=== PATIENT | male | born 1990 | race African-American/Black ===

== ENCOUNTER 2021-07-17 20:08 | Inpatient (IN) | payer MEDICAID ==
[~2021-07-17] VITALS: Ht 182.9 cm; Wt 83.9 kg
[2021-07-17] MEDS ORDERED: LEVETIRACETAM 500MG PREMIX 100 ML IV ONE (20:30)
[2021-07-17] MEDS ORDERED: LORAZEPAM 2MG/ML CPJ IV ONE (20:45)
[2021-07-17 21:15] LABS: HEMATOCRIT. 49.1 % (42.0-52.0); HEMOGLOBIN. 15.1 g/dL (14.0-18.0); MEAN CORPUSCULAR HEMOGLOBIN 31.3 pg (28.0-32.0); MEAN CORPUSCULAR VOLUME 101.4 fL (80.0-94.0); MEAN PLATELET VOLUME 9.6 fl (7.4-10.4); PLATELET 236 x1000/uL (130-400); RED BLOOD CELL COUNT 4.84 mill/uL (4.7-6.1); RED CELL DISTRIBUTION WIDTH 14.1 % (11.6-14.6)
[2021-07-17 21:24] LABS: CHLORIDE 105 mEq/L (98-107)
[2021-07-17 21:32] LABS: ETHANOL BLOOD < 10 mg/dL
[2021-07-17 22:08] LABS: PLATELET ESTIMATE NORMAL
[2021-07-18 01:37] LABS: CLARITY URINE CLEAR (CLEAR); COLOR URINE YELLOW (YELLOW); KETONES URINE TRACE (NEGATIVE); LEUKOCYTE ESTERASE URINE NEGATIVE (NEGATIVE); NITRITE URINE NEGATIVE (NEGATIVE); OCCULT BLOOD URINE 3+ (NEGATIVE); PROTEIN URINE 1+ (NEGATIVE); SPECIFIC GRAVITY URINE 1.014 (1.005-1.030); UROBILINOGEN URINE 0.2 E.U./dL (0.2-1.0)
[2021-07-18 02:01] LABS: *AMPHETAMINES SCREEN URINE NEGATIVE (NEGATIVE); *BARBITURATES SCREEN URINE NEGATIVE (NEGATIVE); *BENZODIAZEPINES SCREEN URINE NEGATIVE (NEGATIVE); *COCAINE SCREEN URINE NEGATIVE (NEGATIVE); CANNABINOID URINE SCREEN PRESUMTIVE POSITIVE (NEGATIVE); METHADONE URINE SCREEN NEGATIVE (NEGATIVE); OPIATES URINE SCREEN NEGATIVE (NEGATIVE); PHENCYCLIDINE URINE SCREEN NEGATIVE (NEGATIVE)
[2021-07-18 02:35] LABS: BG BASE EXCESS -8.3 mmol/L (-2.0-2.0); BG CARBOXYHEMOGLOBIN 0.5 % (0.5-1.5); BG DEOXYHEMOGLOBIN 3.1 % (0.0-5.0); BG FRACTION INSPIRED OXYGEN 21; BG METHEMOGLOBIN 0.4 % (0.0-1.5); BG OXYGEN SATURATION 96.9 % (92.0-98.5); BG PCO2 34.8 mmHg (35.0-45.0); BG PH 7.308 (7.350-7.450); BG PO2 94.7 mmHg (75.0-100.0); BG SAMPLE SITE RIGHT RADIAL; BG TOTAL HEMOGLOBIN 14.6 g/dL (12.0-18.0); BG VENT MODE ROOM AIR
[2021-07-18] MEDS ORDERED: ONDANSETRON HCL 4MG/2ML INJ IV ONE (02:45)
[2021-07-18] MEDS ORDERED: IPRATROPIUM/ALBUTEROL 0.5-3(2.5)MG/3ML NEB HHN PRN (03:45)
[2021-07-18] MEDS ORDERED: DEXTROSE 50% WATER 50ML SYRINGE IV PRN (03:45)
[2021-07-18] MEDS ORDERED: LORAZEPAM 2MG/ML CPJ IV PRN (03:45)
[2021-07-18] MEDS ORDERED: GUAIFENESIN 200MG/10ML SUGAR FREE UDC PO PRN (03:45)
[2021-07-18] MEDS ORDERED: ACETAMINOPHEN 325MG TABLET PO PRN (03:45)
[2021-07-18] MEDS ORDERED: DOCUSATE SODIUM 100MG CAPSULE PO PRN (03:45)
[2021-07-18] MEDS ORDERED: LACTATED RINGERS 1,000 ML IV SCH ×3 (03:45→04:00)
[2021-07-18] MEDS ORDERED: ONDANSETRON HCL 4MG/2ML INJ IV PRN (03:45)
[2021-07-18] MEDS ORDERED: MAGNESIUM/ALUMINUM HYDROXIDE/SIMETHICONE 30ML UDC PO PRN (03:45)
[2021-07-18 04:00] VITALS: BP 129/79
[2021-07-18 05:25] VITALS: BP 129/79
[2021-07-18 07:13] LABS: HEMATOCRIT. 41.1 % (42.0-52.0); HEMOGLOBIN. 13.9 g/dL (14.0-18.0); MEAN CORPUSCULAR VOLUME 94.2 fL (80.0-94.0); MEAN PLATELET VOLUME 8.9 fl (7.4-10.4); PLATELET 194 x1000/uL (130-400); RED BLOOD CELL COUNT 4.36 mill/uL (4.7-6.1); RED CELL DISTRIBUTION WIDTH 12.8 % (11.6-14.6)
[2021-07-18 07:34] LABS: CHLORIDE 109 mEq/L (98-107)
[2021-07-18] MEDS: INSULIN LISPRO 100 UNITS/ML SUBCUT SCH ×4 (07:35→20:38)
[2021-07-18] MEDS: BLOOD SUGAR DIAGNOSTIC STRIP TEST SCH ×4 (07:36→20:37)
[2021-07-18 08:00] VITALS: BP 132/77
[2021-07-18] MEDS ORDERED: LEVETIRACETAM 500MG PREMIX 100 ML IV SCH (09:00)
[2021-07-18] MEDS: LEVETIRACETAM 500MG PREMIX 100 ML IV SCH ×2 (10:20→20:37)
[2021-07-18] MEDS: SODIUM CHLORIDE 0.9% 1,000 ML IV SCH (11:00)
[2021-07-18 12:00] VITALS: BP 126/63
[2021-07-18 16:00] VITALS: BP 129/65
[2021-07-18 16:44] LABS: PLATELET ESTIMATE NORMAL
[2021-07-18 20:00] VITALS: BP 122/72
[2021-07-19] VITALS: BP 124/78
[2021-07-19] MEDS: SODIUM CHLORIDE 0.9% 1,000 ML IV SCH ×2 (03:20→11:01)
[2021-07-19 04:00] VITALS: BP 120/70
[2021-07-19] MEDS: INSULIN LISPRO 100 UNITS/ML SUBCUT SCH ×2 (07:16→12:40)
[2021-07-19] MEDS: BLOOD SUGAR DIAGNOSTIC STRIP TEST SCH ×2 (07:16→12:40)
[2021-07-19 07:39] LABS: HEMATOCRIT. 39.9 % (42.0-52.0); HEMOGLOBIN. 13.6 g/dL (14.0-18.0); MEAN CORPUSCULAR VOLUME 93.8 fL (80.0-94.0); MEAN PLATELET VOLUME 9.2 fl (7.4-10.4); PLATELET 192 x1000/uL (130-400); RED BLOOD CELL COUNT 4.26 mill/uL (4.7-6.1); RED CELL DISTRIBUTION WIDTH 12.8 % (11.6-14.6)
[2021-07-19 07:51] LABS: CHLORIDE 110 mEq/L (98-107)
[2021-07-19 08:00] VITALS: BP 126/84
[2021-07-19] MEDS: LEVETIRACETAM 500MG PREMIX 100 ML IV SCH (08:38)
[2021-07-19 12:00] VITALS: BP 121/80
[2021-07-19 13:43] LABS: PLATELET ESTIMATE NORMAL
== END 2021-07-19 15:00 | disposition left against medical advice (07) | DRG 53 ==
LOC: ER 20:08 → 8WST 07-18 01:50 → ENRESERV 07-18 02:40 → ER 07-18 05:37
PROVIDERS: ADMIT Hospitalist; ATTEND Hospitalist
DX: G40.909 Epilepsy, unspecified, not intractable, without status epilepticus (principal); N17.0 Acute kidney failure with tubular necrosis; E87.2 Acidosis; Z20.822 Contact with and (suspected) exposure to COVID-19; R73.9 Hyperglycemia, unspecified; Z53.29 Procedure and treatment not carried out because of patient's decision for other reasons
CPT/HCPCS: 36415; 36600; 80053; 80305; 80320; 81003; 82375; 82805; 82962; 83036; 83735; 84145; 85025; 87426; 93005; 99291; J1953; J2060; J2405; J7030; J7120; G0480

== ENCOUNTER 2023-09-26 20:50 | Inpatient (IN) | payer MEDICAID, OTHER ==
[~2023-09-26] VITALS: Ht 182.9 cm; Wt 99.8 kg
[2023-09-26 21:38] LABS: DIFFERENTIAL COMMENT 1; HEMATOCRIT. 46.2 % (42.0-52.0); MEAN CORPUSCULAR HEMOGLOBIN 32.3 pg (28.0-32.0); MEAN CORPUSCULAR HGB CONC 32.4 g/dL (31.0-37.0); MEAN CORPUSCULAR VOLUME 99.6 fL (80.0-94.0); MEAN PLATELET VOLUME 9.3 fl (7.4-10.4); PLATELET 180 x1000/uL (130-400); RED BLOOD CELL COUNT 4.64 mill/uL (4.7-6.1); RED CELL DISTRIBUTION WIDTH 13.9 % (11.6-14.6); WHITE BLOOD COUNT 21.6 x1000/uL (4.5-11.0)
[2023-09-26 21:42] LABS: CHLORIDE 105 mEq/L (98-107); POTASSIUM 4.3 mEq/L (3.5-5.1); SODIUM 136 mEq/L (136-145)
[2023-09-26 21:43] LABS: CALCIUM 9.9 mg/dL (8.7-10.4); CARBON DIOXIDE 13 mEq/L (21-32)
[2023-09-26 21:48] LABS: CREATININE 1.6 mg/dL (0.6-1.3); GLUCOSE 191 mg/dL (70-105); UREA NITROGEN BLOOD 13 mg/dL (9-23)
[2023-09-26] MEDS: LORAZEPAM 2MG/ML INJ IM ONE (21:52)
[2023-09-26 21:56] LABS: ETHANOL BLOOD < 10 mg/dL (<10)
[2023-09-26 22:09] LABS: ANISOCYTOSIS 1+; PLATELET ESTIMATE NORMAL
[2023-09-26] MEDS: LEVETIRACETAM 1000MG PREMIX 100 ML IV ONE (22:09)
[2023-09-27] MEDS ORDERED: MELO-106 PO (07:53)
[2023-09-27] MEDS ORDERED: ONDANSETRON HCL 4MG/2ML INJ IV PRN (08:00)
[2023-09-27] MEDS ORDERED: IPRATROPIUM/ALBUTEROL 0.5-3(2.5)MG/3ML NEB HHN PRN (08:00)
[2023-09-27] MEDS ORDERED: ACETAMINOPHEN 325MG TABLET PO PRN (08:00)
[2023-09-27] MEDS ORDERED: LORAZEPAM 2MG/ML INJ IV PRN (08:00)
[2023-09-27] MEDS ORDERED: CLONIDINE 0.1MG TABLET PO PRN (08:00)
[2023-09-27] MEDS ORDERED: DIPHENHYDRAMINE 50MG/ML VIAL IV PRN (08:00)
[2023-09-27] MEDS: LEVETIRACETAM 500MG PREMIX 100 ML IV SCH (09:12)
[2023-09-28] VITALS (7 sets, daily range): BP systolic 102–128; BP diastolic 57–80; PULSE 52–80; RESP 18–20; TEMP 96.8–98.7; O2SAT 97–99
[2023-09-28 06:36] LABS: BASOPHILS % 0.4 % (0.0-2.0); EOSINOPHILS % 0.2 % (0.0-5.0); HEMATOCRIT. 43.3 % (42.0-52.0); HEMOGLOBIN. 14.4 g/dL (14.0-18.0); LYMPHOCYTES % 12.2 % (20.0-50.0); MEAN CORPUSCULAR HGB CONC 33.3 g/dL (31.0-37.0); MEAN CORPUSCULAR VOLUME 96.1 fL (80.0-94.0); MEAN PLATELET VOLUME 9.3 fl (7.4-10.4); MONOCYTES % 10.3 % (2.0-8.0); NEUTROPHILS % 76.9 % (40.0-76.0); PLATELET 168 x1000/uL (130-400); RED CELL DISTRIBUTION WIDTH 13.6 % (11.6-14.6); WHITE BLOOD COUNT 11.9 x1000/uL (4.5-11.0)
[2023-09-28 06:45] LABS: CHLORIDE 108 mEq/L (98-107); POTASSIUM 3.7 mEq/L (3.5-5.1); SODIUM 138 mEq/L (136-145)
[2023-09-28 06:46] LABS: CALCIUM 9.4 mg/dL (8.7-10.4); CARBON DIOXIDE 21 mEq/L (21-32)
[2023-09-28 06:51] LABS: CREATININE 1.3 mg/dL (0.6-1.3)
[2023-09-28 06:52] LABS: GLUCOSE 98 mg/dL (70-105); UREA NITROGEN BLOOD 17 mg/dL (9-23)
[2023-09-28] MEDS: LEVETIRACETAM 500MG PREMIX 100 ML IV SCH (11:00)
== END 2023-09-28 18:18 | disposition short-term general hospital (02) | DRG 101 ==
LOC: ER 20:50 → EDBEDREQ 22:40 → EDBEDREQTM 22:40 → 8WST 09-27 22:18
PROVIDERS: ADMIT Internal Medicine; ATTEND Internal Medicine
DX: G40.909 Epilepsy, unspecified, not intractable, without status epilepticus (principal); D72.829 Elevated white blood cell count, unspecified; Z91.148 Patient's other noncompliance with medication regimen for other reason
CPT/HCPCS: 36415; 80048; 80320; 82962; 85025; 93970; 96365; 96372; 99285; J1953; J2060; G0480

== ENCOUNTER 2023-11-21 16:55 | Emergency (ER) | payer OTHER ==
[~2023-11-21] VITALS: Ht 172.7 cm; Wt 70.0 kg
[~2023-11-21 16:55] MED LIST: MELO-106 PO
[2023-11-21 17:00] VITALS: O2SAT 97
[2023-11-21] MEDS: LEVETIRACETAM 500MG PREMIX 100 ML IV ONE ×2 (17:35)
[2023-11-21] MEDS: LACTATED RINGERS 1,000 ML IV SCH (17:48)
[2023-11-21 19:29] LABS: HEMATOCRIT. 40.8 % (42.0-52.0); HEMOGLOBIN. 13.9 g/dL (14.0-18.0); MEAN CORPUSCULAR HEMOGLOBIN 32.8 pg (28.0-32.0); MEAN CORPUSCULAR HGB CONC 34.1 g/dL (31.0-37.0); PLATELET 144 x1000/uL (130-400); RED BLOOD CELL COUNT 4.25 mill/uL (4.7-6.1); RED CELL DISTRIBUTION WIDTH 13.7 % (11.6-14.6); WHITE BLOOD COUNT 9.1 x1000/uL (4.5-11.0)
[2023-11-21 19:35] LABS: DIFFERENTIAL COMMENT 1
[2023-11-21 19:37] LABS: CHLORIDE 106 mEq/L (98-107); POTASSIUM 4.5 mEq/L (3.5-5.1); SODIUM 136 mEq/L (136-145)
[2023-11-21 19:38] LABS: CALCIUM 9.4 mg/dL (8.7-10.4); CARBON DIOXIDE 26 mEq/L (21-32)
[2023-11-21 19:43] LABS: CREATININE 1.2 mg/dL (0.6-1.3); GLUCOSE 119 mg/dL (70-105); UREA NITROGEN BLOOD 10 mg/dL (9-23)
[2023-11-21 19:45] LABS: ALANINE AMINOTRANSFERASE 19 IU/L (10-49); ALBUMIN 4.3 g/dL (3.2-4.8); ASPARTATE AMINOTRANSFERASE 21 IU/L (<34); BILIRUBIN TOTAL 0.4 mg/dL (0.1-1.0); PROTEIN TOTAL 7.1 g/dL (6.0-8.3)
[2023-11-21 19:51] LABS: PLATELET ESTIMATE NORMAL
[2023-11-21 23:10] VITALS: BP 123/76; PULSE 58; RESP 18; TEMP 36.66960; O2SAT 100
== END 2023-11-21 23:05 | disposition short-term general hospital (02) ==
LOC: ER 16:55 → EDBEDREQ 20:38 → ER 23:05
DX: G40.909 Epilepsy, unspecified, not intractable, without status epilepticus (principal); Z79.1 Long term (current) use of non-steroidal anti-inflammatories (NSAID)
CPT/HCPCS: 99285; 96374; 70450; 96361; 80053; 85025; 36415; 93005; J1953